=== PATIENT | female | born 1975 | race Caucasian/White ===

== ENCOUNTER 2025-04-26 17:07 | Emergency (ER) | payer OTHER ==
[~2025-04-26] VITALS: Ht 170.2 cm; Wt 80.7 kg
[2025-04-26] MEDS ORDERED: LACTATED RINGER'S 1,000 ML IV ONE (17:15)
[2025-04-26 17:24] LABS: BASOPHILS 0.6 % (0.1-1.2); EOSINOPHILS 15.3 % (0.7-5.8); LYMPHOCYTES 31.2 % (19.3-51.7); MCH 29.7 PG (25.6-32.2); MCHC 33.2 g/dL (32.2-35.5); MCV 89.4 fL (79.4-94.8); MONOCYTES 9.2 % (4.7-12.5); NEUTROPHILS 43.1 % (34.0-71.1); RBC 4.14 M/uL (3.93-5.22)
[2025-04-26 17:55] LABS: ALCOHOL, MEDICAL 103 ng/dL (<3); ALT (SGPT) 37 U/L (14-59); AST (SGOT) 32 U/L (15-37); GLOMERULAR FILTRATION RATE,EST 108 mL/min (>60); PROTEIN, TOTAL 6.8 g/dL (6.4-8.2); UREA NITROGEN 10 mg/dL (7-18)
[2025-04-26 18:00] LABS: ABO A; RH POSITIVE
[2025-04-26] MEDS ORDERED: DIPHTH,PERTUSS(ACELL),TET VAC 0.5 ML SYRINGE IM ONE (18:00)
[2025-04-26 18:01] LABS: ANTIBODY SCREEN NEGATIVE
[2025-04-26] MEDS ORDERED: OXYCODONE/ACETAMINOPHEN 1 TAB HOME.PACK PO ONE (20:15)
[2025-04-26] MEDS ORDERED: ONDANSETRON 4 MG HOME.PACK SL ONE (20:15)
[2025-04-26 20:35] VITALS: BP 113/75
== END 2025-04-26 20:35 | disposition home or self-care (01) ==
LOC: ED 17:07
PROVIDERS: Emergency Medicine
DX: S01.01XA Laceration without foreign body of scalp, initial encounter (principal); Z88.5 Allergy status to narcotic agent; V80.010A Animal-rider injured by fall from or being thrown from horse in noncollision accident, initial encounter
CPT/HCPCS: 12002; 36415; 70450; 71260; 72125; 74177; 80053; 80307; 83605; 84702; 85025; 86850; 86900; 86901; 90715; 96374; 99284-25; A9270; G0480; J2405; J7121; Q9967